=== PATIENT | male | born 1995 | race Caucasian/White ===

== ENCOUNTER 2018-01-17 08:10 | Emergency (ER) | payer BC ==
[2018-01-17] MEDS ORDERED: Ondansetron 4 MG/2 ML SDV IVPUSH ONE (08:20)
[2018-01-17] MEDS: Sodium Chloride 0.9% 10 ML Syringe FLUSH PRN ×2 (08:35→10:43)
[2018-01-17 08:43] LABS: CHLORIDE,CL 102 mmol/L (98-107); SODIUM,NA 139 mmol/L (136-145)
[2018-01-17] MEDS ORDERED: Sodium Chloride 0.9% 1,000 ML IV ONE (09:09)
[2018-01-17] MEDS ORDERED: Pantoprazole 40 MG Vial IVPUSH ONE (09:10)
--- NOTE | 2018-01-17 09:28 | EDM.PDOC ---
ED HPI GENERAL MEDICAL PROBLEM - General Chief Complaint: Gastrointestinal Problem Stated Complaint: Nausea, Vomiting Time Seen by Provider: 01/17/18 08:40 Source of Information: Reports: Patient History Limitations: Reports: No Limitations - History of Present Illness INITIAL COMMENTS - FREE TEXT/NARRATIVE: Patient comes in with complaint of vomiting over the last few days. Unable to eat much. Has vomited approx 20 times. Says that he has had issues with intermittent periods of emesis over the last month. Long history of chronic loose stools and has not seen an acute change with this. No fevers/chills. No abominal pain complaint. No injuries. No asthma type symptoms/chest pain. Left side of neck has been sore for about 4 days, worse with turning head. No headache. Been told he has GERD. Waiting to undergo new series of pinprick allergy testing as his doctor wondered if patient's complaint of feeling a bit SOB at the beginning of these emesis episodes might be allergy related. History of congenital hearing loss. Left Neck Pain Score (Numeric/FACES): 5 - Related Data Allergies Allergy/AdvReac Type Severity Reaction Status Date / Time walnut Allergy Anaphylactic Verified 01/17/18 08:11 Shock grain dust Allergy Shortness Uncoded 01/17/18 08:11 of Breath Home Meds: Home Meds Albuterol [IJD: Albuterol] 2.5 mg NEB DAILY PRN 12/28/16 [History] Albuterol [IJD: Ventolin HFA] 2 puff INH Q4HR 12/28/16 [History] Fluticasone/Salmeterol [Advair Diskus 100-50] 1 puff INH DAILY 12/28/16 [History ] Past Medical History HEENT History: Reports: Hard of Hearing, Other (See Below) Other HEENT History: bilat hearing aids Cardiovascular History: Reports: None Respiratory History: Reports: Asthma Gastrointestinal History: Reports: GERD, Other (See Below) (chronic loose stools ) Genitourinary History: Reports: None Musculoskeletal History: Reports: None Neurological History: Reports: None Psychiatric History: Reports: Anxiety Endocrine/Metabolic History: Reports: Obesity/BMI 30+ Oncologic (Cancer) History: Reports: None - Infectious Disease History Infectious Disease History: Reports: None - Past Surgical History Respiratory Surgical History: Reports: None GI Surgical History: Reports: None Neurological Surgical History: Reports: None Musculoskeletal Surgical History: Reports: None Social & Family History - Tobacco Use Tobacco Use Within Last Twelve Months: Smokeless Tobacco Years of Tobacco use: 9 Packs/Tins Daily: 1 - Alcohol Use Alcohol Use History: No - Recreational Drug Use Recreational Drug Use: No Drug Use in Last 12 Months: No ED ROS GENERAL - Review of Systems Review Of Systems: See Below Constitutional: Denies: Fever, Chills, Weakness, Fatigue, Night Sweats, Diaphoresis, Weight Loss, Weight Gain HEENT: Reports: No Symptoms Respiratory: Reports: No Symptoms Cardiovascular: Reports: No Symptoms. Denies: Chest Pain, Edema, Lightheadedness, Palpitations GI/Abdominal: Reports: Diarrhea, Nausea, Vomiting. Denies: Abdominal Pain, Hematemesis, Hematochezia : Reports: No Symptoms Musculoskeletal: Reports: No Symptoms Skin: Reports: No Symptoms Neurological: Reports: No Symptoms. Denies: Headache Psychiatric: Reports: No Symptoms Hematologic/Lymphatic: Reports: No Symptoms ED EXAM, GI/ABD - Physical Exam Exam: See Below Exam Limited By: No Limitations General Appearance: Alert, WD/WN, No Apparent Distress Eyes: Bilateral: Normal Appearance, EOMI Ears: Normal External Exam, Normal Canal Nose: Normal Inspection, Normal Mucosa Throat/Mouth: Normal Inspection, Normal Lips, Normal Teeth, Normal Voice, No Airway Compromise Head: Atraumatic, Normocephalic Neck: Supple, Tender Lateral (left SCM muscle). No: Limited Range of Motion, Tender Midline Respiratory/Chest: No Respiratory Distress, Lungs Clear, Normal Breath Sounds, No Accessory Muscle Use, Chest Non-Tender Cardiovascular: Normal Peripheral Pulses, Regular Rate, Rhythm, No Edema, No Murmur GI/Abdominal Exam: Normal Bowel Sounds, Soft, Other (mild discomfort with palpation in epigastric area). No: Distended, Guarding, Rigid, Rebound (Male) Exam: Deferred Rectal (Males) Exam: Deferred Back Exam: Normal Inspection Extremities: Normal Inspection Neurological: Alert, Oriented, CN II-XII Intact, Normal Cognition, Normal Gait, No Motor/Sensory Deficits Psychiatric: Normal Affect, Normal Mood Skin Exam: Warm, Dry, Intact, Normal Color Course - Vital Signs Last Recorded V/S: Last Vital Signs Temp 36.1 C 01/17/18 08:12 Pulse 85 08/21/18 08:44 Resp 18 01/17/18 08:44 BP 142/82 H 01/17/18 08:44 Pulse Ox 99 01/17/18 08:44 - Orders/Labs/Meds Orders: Active Orders 24 hr Category Date Time Status Peripheral IV Care [RC] . DIRECTED Care 01/17/18 08:20 Active Abdomen Ltd [US] Stat Exams 01/17/18 09:09 Taken DRUG SCREEN, URINE [URCHEM] Stat Lab 01/17/18 07:25 Ordered HEPATITIS PANEL (4) [REF] Routine Lab 01/17/18 10:25 Received UA W/MICROSCOPIC [URIN] Stat Lab 01/17/18 08:25 Ordered Sodium Chloride 0.9% [Saline Flush] Med 01/17/18 08:20 Active 10 ml FLUSH ASDIRECTED PRN Peripheral IV Insertion Adult [OM.PC] Routine Oth 01/17/18 08:20 Ordered Medication Orders Sodium Chloride (Saline Flush) 10 ml FLUSH ASDIRECTED PRN PRN Reason: Keep Vein Open Last Admin: 01/17/18 10:43 Dose: 10 ml Admin: 01/17/18 08:35 Dose: 10 ml Labs: Laboratory Tests 01/17/18 01/17/18 01/17/18 Range/Units 07:25 07:25 08:25 WBC 8.2 (4.0-10.2) K/uL RBC 5.00 (4.33-5.41) M/uL Hgb 16.4 (13.1-16.8) g/dL Hct 46.2 (39.0-49.0) % MCV 92.4 (84.0-98.0) fL MCH 32.8 (28.2-33.3) pg MCHC 35.5 (31.7-36.0) g/dL RDW 12.5 (11.2-14.1) % Plt Count 303 (150-350) K/uL Neut % (Auto) 55.5 (45.0-80.0) % Lymph % (Auto) 31.3 (10.0-50.0) % Lassen % (Auto) 7.8 (2.0-14.0) % Eos % (Auto) 5.0 (0.0-5.0) % Baso % (Auto) 0.4 (0.0-2.0) % Neut # (Auto) 4.57 (1.40-7.00) K/uL Lymph # (Auto) 2.57 (0.50-3.50) K/uL Lassen # (Auto) 0.64 (0.00-1.00) K/uL Eos # (Auto) 0.41 (0.00-0.50) K/uL Baso # (Auto) 0.03 (0.00-0.20) K/uL Sodium (136-145) mmol/L Potassium (3.5-5.1) mmol/L Chloride (98-107) mmol/L Carbon Dioxide (21.0-32.0) mmol/L BUN (7-18) mg/dL Creatinine (0.51-1.17) mg/dL Est Cr Clr Drug Dosing mL/min Estimated GFR (MDRD) mL/min Glucose (74-106) mg/dL Hemoglobin A1c (4.3-5.7) % Calcium (8.5-10.1) mg/dL Magnesium 1.9 (1.8-2.4) mg/dL Total Bilirubin (0.2-1.0) mg/dL AST (15-37) U/L ALT (12-78) U/L Alkaline Phosphatase (46-116) IU/L Total Protein (6.4-8.2) g/dL Albumin (3.4-5.0) g/dL Specimen Type Urine Color Urine Appearance Urine pH (5.0-9.0) Ur Specific Hoffman (1.005-1.030) Urine Protein (NEGATIVE) mg/dL Urine Glucose (UA) (NEGATIVE) mg/dL Urine Ketones (NEGATIVE) mg/dL Urine Occult Blood (NEGATIVE) Urine Nitrite (NEGATIVE) Urine Bilirubin (NEGATIVE) Urine Urobilinogen (0.2-1.0) E.U./dL Ur Leukocyte Esterase (NEGATIVE) Urine RBC /HPF Urine WBC /HPF Ur Epithelial Cells /LPF Urine Bacteria (NONE TO FEW) /HPF Urine Mucus (NEGATIVE) /LPF Urine Opiates Screen Negative (NEGATIVE) Urine Methadone Screen Negative (NEGATIVE) U Acetaminophen Screen Negative (NEGATIVE) Ur Barbiturates Screen Negative (NEGATIVE) Ur Tricyclics Screen Negative (NEGATIVE) Ur Phencyclidine Scrn Negative (NEGATIVE) Ur Amphetamine Screen Negative (NEGATIVE) U Methamphetamines Scrn Negative (NEGATIVE) U Benzodiazepines Scrn Negative (NEGATIVE) U Cocaine Metab Screen Negative (NEGATIVE) U Marijuana (THC) Screen Negative (NEGATIVE) Ethyl Alcohol 0.000 (0.000-0.080) g/dL 01/17/18 01/17/18 01/17/18 Range/Units 08:25 08:25 08:25 WBC (4.0-10.2) K/uL RBC (4.33-5.41) M/uL Hgb (13.1-16.8) g/dL Hct (39.0-49.0) % MCV (84.0-98.0) fL MCH (28.2-33.3) pg MCHC (31.7-36.0) g/dL RDW (11.2-14.1) % Plt Count (150-350) K/uL Neut % (Auto) (45.0-80.0) % Lymph % (Auto) (10.0-50.0) % Lassen % (Auto) (2.0-14.0) % Eos % (Auto) (0.0-5.0) % Baso % (Auto) (0.0-2.0) % Neut # (Auto) (1.40-7.00) K/uL Lymph # (Auto) (0.50-3.50) K/uL Lassen # (Auto) (0.00-1.00) K/uL Eos # (Auto) (0.00-0.50) K/uL Baso # (Auto) (0.00-0.20) K/uL Sodium 139 (136-145) mmol/L Potassium 4.0 (3.5-5.1) mmol/L Chloride 102 (98-107) mmol/L Carbon Dioxide 28.7 (21.0-32.0) mmol/L BUN 10 (7-18) mg/dL Creatinine 1.16 (0.51-1.17) mg/dL Est Cr Clr Drug Dosing 109.64 mL/min Estimated GFR (MDRD) > 60 mL/min Glucose 111 H (74-106) mg/dL Hemoglobin A1c 5.1 (4.3-5.7) % Calcium 9.6 (8.5-10.1) mg/dL Magnesium (1.8-2.4) mg/dL Total Bilirubin 1.1 H (0.2-1.0) mg/dL AST 59 H (15-37) U/L ALT 190 H (12-78) U/L Alkaline Phosphatase 137 H (46-116) IU/L Total Protein 8.2 (6.4-8.2) g/dL Albumin 4.6 (3.4-5.0) g/dL Specimen Type Urinvoid Urine Color Yellow Urine Appearance Clear Urine pH 6.0 (5.0-9.0) Ur Specific Hoffman 1.020 (1.005-1.030) Urine Protein Negative (NEGATIVE) mg/dL Urine Glucose (UA) Negative (NEGATIVE) mg/dL Urine Ketones Negative (NEGATIVE) mg/dL Urine Occult Blood Negative (NEGATIVE) Urine Nitrite Negative (NEGATIVE) Urine Bilirubin Negative (NEGATIVE) Urine Urobilinogen 0.2 (0.2-1.0) E.U./dL Ur Leukocyte Esterase Negative (NEGATIVE) Urine RBC 0-5 /HPF Urine WBC 0-5 /HPF Ur Epithelial Cells Rare /LPF Urine Bacteria Few (NONE TO FEW) /HPF Urine Mucus Moderate H (NEGATIVE) /LPF Urine Opiates Screen (NEGATIVE) Urine Methadone Screen (NEGATIVE) U Acetaminophen Screen (NEGATIVE) Ur Barbiturates Screen (NEGATIVE) Ur Tricyclics Screen (NEGATIVE) Ur Phencyclidine Scrn (NEGATIVE) Ur Amphetamine Screen (NEGATIVE) U Methamphetamines Scrn (NEGATIVE) U Benzodiazepines Scrn (NEGATIVE) U Cocaine Metab Screen (NEGATIVE) U Marijuana (THC) Screen (NEGATIVE) Ethyl Alcohol (0.000-0.080) g/dL Meds: Medications Generic Name Dose Route Start Last Admin Trade Name Freq PRN Reason Stop Dose Admin Sodium Chloride 10 ml 01/17/18 08:20 01/17/18 10:43 Saline Flush FLUSH 10 ml ASDIRECTED PRN Administration Keep Vein Open Discontinued Medications Generic Name Dose Route Start Last Admin Trade Name Freq PRN Reason Stop Dose Admin Sodium Chloride 1,000 mls @ 999 mls/hr 01/17/18 09:09 01/17/18 10:43 Normal Saline IV 01/17/18 10:09 999 mls/hr .BOLUS ONE Administration Lorazepam 0.5 mg 01/17/18 12:23 Ativan PO 01/17/18 12:24 ONETIME ONE Ondansetron HCl 4 mg 01/17/18 08:20 01/17/18 08:35 Zofran IVPUSH 01/17/18 08:21 4 mg ONETIME ONE Administration Pantoprazole Sodium 40 mg 01/17/18 09:10 01/17/18 10:43 Protonix Iv IVPUSH 01/17/18 09:11 40 mg ONETIME ONE Administration - Radiology Interpretation Free Text/Narrative:: RUQ US performed, unremarkable except for changes likely reflecting fatty liver - Re-Assessments/Exams Free Text/Narrative Re-Assessment/Exam: 01/17/18 11:56 Patient felt improved after receiving Zofran. US RUQ performed after labs showed elevated LFTs. Patient thinks that he was looked at a few years ago for the same thing and said "2 numbers were up", and then added that nothing in particular was found to be wrong. CBC unremarkable. Blood glucose mildly elevated but A1C normal. Patient received IV fluid bolus. Given history of GERD, fatty liver changes, and chronic diarrhea, suspect that food intolerance/IBS may be contributing to patient's complaints in addition to early metabolic disorder. This could also be causing his recent intermittent emesis episodes. Recommended dietary changes to cut out refined foods/sugars/ sodas. Elimination diet/trial encouraged. Discussed possible CT study as well as HPylorie screen. Patient prefers to follow up with his local provider in [place] for this. Hepatitis screen pending. Patient thinks that he was tested for that a few years back also. He never followed up as instructed however to continue monitoring his labs. Patient is aware that he may need referral to GI clinic. As time went on, patient wondered if his anxiety was contributing to the nausea/ emesis episodes, especially when he felt like he could not take a good breath prior to emesis episodes. He also admitted that if he sits and thinks about feeling SOB, that he in turn does feel more SOB. When he is busy at work and is not able to concentrate on anxiety and SOB, he has no symptoms. A single Ativan was given to the patient to take once he gets home (he is not to drive after taking the Ativan) so that he could see if that appeared to make any additional improvement. He plans on following up with later this week or next week if he can get an appointment. No observed emesis/distress during time patient spend here in the ER. suspect left sternoclidomastoid muscle spasm as cause of left sided neck pain. Recommended continued observation, heat, gentle ROM exercises. Departure - Departure Time of Disposition: 13:05 Disposition: Home, Self-Care 01 Condition: Good Clinical Impression: Chronic diarrhea, Fatty liver, Anxiety, Sternocleidomastoid muscle tenderness Emesis Qualifiers: Vomiting type: cyclical vomiting Vomiting Intractability: non-intractable Nausea presence: with nausea Qualified Code(s): G43.A0 - Cyclical vomiting, not intractable - Discharge Information *PRESCRIPTION DRUG MONITORING PROGRAM REVIEWED*: Not Applicable *COPY OF PRESCRIPTION DRUG MONITORING REPORT IN PATIENT MYLES: Not Applicable Instructions: Ondansetron injection, Nausea and Vomiting, Adult, Fatty Liver Referrals: Hal Medrano MD [Primary Care Provider] - Forms: ED Department Discharge Additional Instructions: Follow up with your doctor and discuss H.Pylorie testing as well as possible referral to GI or additional imaging studies if needed. Elimination diet is recommended to see if this improves your chronic diarrhea/ reflux symptoms, and vomiting episodes. OK to take OTC Zantac or Pepcid as package directs for the next several weeks. Take the anxiety pill once you get home and see if this helps improve your general feelings of wellness/anxiety. - My Orders Last 24 Hours: My Active Orders 01/17/18 07:25 DRUG SCREEN, URINE [URCHEM] Stat 01/17/18 08:20 Peripheral IV Care [RC] . DIRECTED Sodium Chloride 0.9% [Saline Flush] 10 ml FLUSH ASDIRECTED PRN Peripheral IV Insertion Adult [OM.PC] Routine 01/17/18 08:25 UA W/MICROSCOPIC [URIN] Stat 01/17/18 09:09 Abdomen Ltd [US] Stat 01/17/18 10:25 HEPATITIS PANEL (4) [REF] Routine - Assessment/Plan Last 24 Hours: My Active Orders 01/17/18 07:25 DRUG SCREEN, URINE [URCHEM] Stat 01/17/18 08:20 Peripheral IV Care [RC] . DIRECTED Sodium Chloride 0.9% [Saline Flush] 10 ml FLUSH ASDIRECTED PRN Peripheral IV Insertion Adult [OM.PC] Routine 01/17/18 08:25 UA W/MICROSCOPIC [URIN] Stat 01/17/18 09:09 Abdomen Ltd [US] Stat 01/17/18 10:25 HEPATITIS PANEL (4) [REF] Routine
[2018-01-17] MEDS ORDERED: LORazepam 0.5 MG Tab PO ONE (12:23)
[2018-01-17 16:46] VITALS: BP 140/64
== END 2018-01-17 13:15 | disposition home or self-care (01) ==
LOC: LL.ED 08:10
DX: G43.A0 Cyclical vomiting, in migraine, not intractable (principal); K76.0 Fatty (change of) liver, not elsewhere classified; R19.7 Diarrhea, unspecified; F41.9 Anxiety disorder, unspecified; M62.89 Other specified disorders of muscle; F17.290 Nicotine dependence, other tobacco product, uncomplicated; E66.9 Obesity, unspecified; J45.909 Unspecified asthma, uncomplicated; Z79.51 Long term (current) use of inhaled steroids; Z91.018 Allergy to other foods; Z91.048 Other nonmedicinal substance allergy status
CPT/HCPCS: 36415; 76705; 80053; 80074; 80305-QW; 81001; 83036; 83735; 85025; 96361; 96374; 96375; 99284; A9270-GY; C9113; G0480; J2405; J7030; J7050

== ENCOUNTER 2020-02-20 16:51 | Emergency (ER) | payer BC ==
[2020-02-20 17:16] VITALS: BP 129/71; PULSE 100
--- NOTE | 2020-02-20 17:20 | EDM.PDOC ---
ED HPI GENERAL MEDICAL PROBLEM - General Chief Complaint: Respiratory Problem Stated Complaint: asthma attack Time Seen by Provider: 02/20/20 17:00 Source of Information: Reports: Patient History Limitations: Reports: No Limitations - History of Present Illness INITIAL COMMENTS - FREE TEXT/NARRATIVE: Has hx/o asthma and now SOb [place] Did use inhaler Fe eling better after inhaler Onset: Today, Sudden Duration: Minutes: Location: Reports: Chest Treatments DATABASE ANALYST: Reports: Other Medication(s) (Inhaler) - Related Data Allergies Allergy/AdvReac Type Severity Reaction Status Date / Time walnut Allergy Anaphylactic Verified 02/20/20 17:02 Shock grain dust Allergy Shortness Uncoded 02/20/20 17:02 of Breath Home Meds: Home Meds Albuterol [IJD: Albuterol] 2.5 mg NEB DAILY PRN 12/28/16 [History] Albuterol [IJD: Ventolin HFA] 2 puff INH Q4HR 12/28/16 [History] Cetirizine [ZyrTEC] 10 mg PO DAILY 06/11/19 [History] Escitalopram Oxalate [Lexapro] 10 mg PO DAILY 06/11/19 [History] Fluticasone/Vilanterol [Breo Ellipta 200-25 MCG Inhalation Kit] 1 puff IH BEDTIME 06/11/19 [History] Montelukast [Singulair] 10 mg PO DAILY 06/11/19 [History] Past Medical History HEENT History: Reports: Hard of Hearing, Other (See Below) Other HEENT History: bilat hearing aids Cardiovascular History: Reports: None Respiratory History: Reports: Asthma Gastrointestinal History: Reports: GERD, Other (See Below) (chronic loose stools) Genitourinary History: Reports: None Musculoskeletal History: Reports: None Neurological History: Reports: None Psychiatric History: Reports: Anxiety Endocrine/Metabolic History: Reports: Obesity/BMI 30+ Oncologic (Cancer) History: Reports: None - Infectious Disease History Infectious Disease History: Reports: None - Past Surgical History Respiratory Surgical History: Reports: None GI Surgical History: Reports: None Neurological Surgical History: Reports: None Musculoskeletal Surgical History: Reports: None Social & Family History - Caffeine Use Caffeine Use: Reports: Soda ED ROS GENERAL - Review of Systems Review Of Systems: See Below Constitutional: Reports: No Symptoms HEENT: Reports: No Symptoms Respiratory: Reports: Wheezing Cardiovascular: Reports: No Symptoms GI/Abdominal: Reports: No Symptoms ED EXAM, GENERAL - Physical Exam Exam: See Below Exam Limited By: No Limitations General Appearance: Alert, WD/WN, No Apparent Distress Throat/Mouth: Normal Oropharynx Neck: Supple Respiratory/Chest: Lungs Clear Cardiovascular: Regular Rate, Rhythm Course - Vital Signs Last Recorded V/S: Last Vital Signs Temp 98.1 F 02/20/20 16:53 Pulse 100 02/20/20 17:15 Resp 24 H 02/20/20 16:53 BP 129/71 02/20/20 17:15 Pulse Ox 94 L 02/20/20 16:53 - Orders/Labs/Meds Orders: Active Orders 24 hr Category Date Time Status Chest 2V [CR] Stat Exams 02/20/20 16:58 Ordered Labs: Laboratory Tests 02/20/20 Range/Units 17:00 WBC 8.4 (4.0-10.2) K/uL RBC 4.70 (4.33-5.41) M/uL Hgb 15.3 (13.1-16.8) g/dL Hct 43.7 (39.0-49.0) % MCV 93.0 (84.0-98.0) fL MCH 32.6 (28.2-33.3) pg MCHC 35.0 (31.7-36.0) g/dL RDW 12.6 (11.2-14.1) % Plt Count 289 (150-350) K/uL Neut % (Auto) 55.7 (45.0-80.0) % Lymph % (Auto) 30.9 (10.0-50.0) % Burnet % (Auto) 7.5 (2.0-14.0) % Eos % (Auto) 5.7 H (0.0-5.0) % Baso % (Auto) 0.2 (0.0-2.0) % Neut # (Auto) 4.66 (1.40-7.00) K/uL Lymph # (Auto) 2.59 (0.50-3.50) K/uL Burnet # (Auto) 0.63 (0.00-1.00) K/uL Eos # (Auto) 0.48 (0.00-0.50) K/uL Baso # (Auto) 0.02 (0.00-0.20) K/uL - Re-Assessments/Exams Free Text/Narrative Re-Assessment/Exam: 02/20/20 17:18 See lab and CXR Symptoms have resolved per patient Departure - Departure Time of Disposition: 17:20 Disposition: Home, Self-Care 01 Clinical Impression: Asthma with acute exacerbation in adult Qualifiers: Asthma severity: mild Asthma persistence: intermittent Qualified Code(s): J45.21 - Mild intermittent asthma with (acute) exacerbation - Discharge Information *PRESCRIPTION DRUG MONITORING PROGRAM REVIEWED*: Not Applicable *COPY OF PRESCRIPTION DRUG MONITORING REPORT IN PATIENT MYLES: Not Applicable Instructions: Asthma, Adult Referrals: Ivone Garner PA-C [Primary Care Provider] - Additional Instructions: Follow up in clinic Sepsis Event Note (ED) - Evaluation Sepsis Screening Result: No Definite Risk - Focused Exam Vital Signs: Vital Signs Temp Pulse Resp BP Pulse Ox 02/20/20 17:15 100 129/71 02/20/20 16:53 98.1 F 106 H 24 H 145/98 H 94 L - My Orders Last 24 Hours: My Active Orders 02/20/20 16:58 Chest 2V [CR] Stat - Assessment/Plan Last 24 Hours: My Active Orders 02/20/20 16:58 Chest 2V [CR] Stat
== END 2020-02-20 17:25 | disposition home or self-care (01) ==
LOC: LL.ED 16:51 → SUPCPDRO 16:51 → LL.ED 17:25
DX: J45.21 Mild intermittent asthma with (acute) exacerbation (principal); F41.9 Anxiety disorder, unspecified; E66.9 Obesity, unspecified; Z91.018 Allergy to other foods; Z91.048 Other nonmedicinal substance allergy status; Z79.899 Other long term (current) drug therapy
CPT/HCPCS: 36415; 71046; 85025; 99283; 99285